=== PATIENT | female | born 1975 | race Caucasian/White ===

== ENCOUNTER 2018-01-22 17:39 | Emergency (ER) | payer MEDICAID ==
[~2018-01-22] VITALS: Ht 152.4 cm; Wt 60.8 kg
[~2018-01-22 17:39] MED LIST: METR250T2 PO
[2018-01-22 17:42] VITALS: BP 99/80
[2018-01-22 18:11] VITALS: BP 99/80
== END 2018-01-22 18:11 | disposition home or self-care (01) ==
LOC: MED 17:39
DX: L03.317 Cellulitis of buttock (principal); Z88.5 Allergy status to narcotic agent; Z79.899 Other long term (current) drug therapy
CPT/HCPCS: 99283

== ENCOUNTER 2018-01-26 10:17 | Emergency (ER) | payer MEDICAID ==
[~2018-01-26] VITALS: Ht 152.4 cm; Wt 59.0 kg
--- NOTE | 2018-01-26 10:24 | NUR ---
PT AMBULATES TO BED 7
[2018-01-26 10:28] VITALS: BP 126/82
--- NOTE | 2018-01-26 10:36 | NUR ---
RECTAL PAIN "BUMPS" X 4 DAYS WITH MILD PRURITIS. DENIES ANY BLOOD IN STOOL. DENIES FEVERS/CHILLS. . DENIES N/V/D; SKIN IS PINK/WARM/DRY; AAOX4 WITH EVEN AND STEADY GAIT; LUNGS CLEAR BL; HR EVEN AND REGULAR; PT DENIES ANY FEVER, CP, SOB, OR COUGH AT THIS TIME; PATIENT STATES PAIN OF 4/10 AT THIS TIME; VSS; PATIENT POSITIONED FOR COMFORT; HOB ELEVATED; BEDRAILS UP X2; BED DOWN. ER MD MADE AWARE OF PT STATUS.
[2018-01-26 10:53] VITALS: BP 126/82
--- NOTE | 2018-01-26 10:55 | NUR ---
Patient discharged with v/s stable. Written and verbal after care instructions given and explained. Patient alert, oriented and verbalized understanding of instructions. Ambulatory with steady gait. All questions addressed prior to discharge. ID band removed. Patient advised to follow up with PMD. Rx of ACYCLOVIR AND TRAMADOL given. Patient educated on indication of medication including possible reaction and side effects. Opportunity to ask questions provided and answered.
== END 2018-01-26 10:55 | disposition home or self-care (01) ==
LOC: MED 10:17
DX: B02.9 Zoster without complications (principal); R03.0 Elevated blood-pressure reading, without diagnosis of hypertension; Z79.899 Other long term (current) drug therapy; Z88.5 Allergy status to narcotic agent
CPT/HCPCS: 99283

== ENCOUNTER 2018-10-27 01:38 | Emergency (ER) | payer MEDICAID ==
[~2018-10-27] VITALS: Ht 152.4 cm; Wt 61.2 kg
[2018-10-27 01:40] VITALS: BP 105/65
--- NOTE | 2018-10-27 01:47 | NUR ---
PT TAKEN TO BED 2
--- NOTE | 2018-10-27 01:50 | NUR ---
PT BIB C/O ABD PAIN X3 DAYS. PT STATES SHE IS HAVING SHARP UPPER ABD PAIN /10 X3 DAYS. DENIES N/V/D; SKIN IS PINK/WARM/DRY; AAOX4 WITH EVEN AND STEADY GAIT; LUNGS CLEAR BL; HR EVEN AND REGULAR; PT DENIES ANY FEVER, CP, SOB, OR COUGH AT THIS TIME; VSS; PATIENT POSITIONED FOR COMFORT; HOB ELEVATED; BEDRAILS UP X2; BED DOWN. ER MD MADE AWARE OF PT STATUS. LMP:09/05/18 PMH: DENIES RX: DENIES
[2018-10-27 03:15] LABS: BASOPHILS # (AUTO) 0.1 K/uL (0.00-0.22); BASOPHILS % (AUTO) 0.9 % (0.0-2.0); EOSINOPHILS # (AUTO) 0.2 K/uL (0-0.4); EOSINOPHILS % (AUTO) 1.7 % (0.0-4.0); HEMATOCRIT 35.1 % (36-48); HEMOGLOBIN 11.4 g/dL (12.0-16.0); LYMPHOCYTES # (AUTO) 2.3 K/uL (2.5-16.5); LYMPHOCYTES % (AUTO) 20.9 % (20.5-51.1); MEAN CORPUSCULAR HEMOGLOBIN 29 pg (27-31); MEAN CORPUSCULAR HGB CONC 32 g/dL (33-37); MEAN CORPUSCULAR VOLUME 89.7 fL (80-94); NEUTROPHILS # (AUTO) 7.5 K/uL (1.8-7.7); NEUTROPHILS % (AUTO) 67.5 % (42.2-75.2); PLATELET COUNT (AUTO) 235 K/uL (140-450); RED BLOOD CELL COUNT(AUTO) 3.91 MIL/uL (4.20-5.40); RED CELL DISTRIBUTION WIDTH 13.9 % (11.6-13.7); WHITE BLOOD COUNT (AUTO) 11.1 K/uL (4.8-10.8)
[2018-10-27 03:30] LABS: ANION GAP 10.9 (8-16); CARBON DIOXIDE 23.1 mmol/L (21-32); CREATININE 0.7 mg/dL (0.6-1.3)
[2018-10-27 03:35] LABS: ALBUMIN 3.5 g/dL (3.4-5.0); TOTAL BILIRUBIN 0.2 mg/dL (0.0-1.0)
[2018-10-27] MEDS ORDERED: DICYCLOMINE 20 MG/2 ML VIAL IM ONE (04:15)
[2018-10-27] MEDS ORDERED: ACETAMINOPHEN EXTRA STRENGTH 500 MG TAB PO ONE (04:15)
[2018-10-27 04:19] LABS: APPEARANCE,URINE HAZY (CLEAR); BILIRUBIN,URINE NEGATIVE (NEGATIVE); BLOOD, URINE NEGATIVE (NEGATIVE); COLOR,URINE YELLOW (YELLOW); LEUKOCYTE ESTERASE ,URINE 2+ (NEGATIVE); NITRITE, URINE NEGATIVE (NEGATIVE); UGLUCOSE NEGATIVE (NEGATIVE)
[2018-10-27 04:36] LABS: RBC,URINE 0-5 (RARE) /HPF (0-5); WBC,URINE 60-80 /HPF (0-5)
[2018-10-27] MEDS ORDERED: LIDOCAINE VISCOUS 2% 20 ML UDC PO ONE (05:40)
[2018-10-27 05:50] VITALS: BP 110/68
--- NOTE | 2018-10-27 05:50 | NUR ---
Patient discharged with v/s stable. Written and verbal after care instructions given and explained. Patient alert, oriented and verbalized understanding of instructions. Ambulatory with steady gait. All questions addressed prior to discharge. ID band removed. Patient advised to follow up with PMD. Rx of Macrobid, and Acetaminophen given. Patient educated on indication of medication including possible reaction and side effects. Opportunity to ask questions provided and answered.
== END 2018-10-27 05:50 | disposition home or self-care (01) ==
LOC: MED 01:38
DX: O20.0 Threatened abortion (principal); Z3A.01 Less than 8 weeks gestation of pregnancy; Z79.899 Other long term (current) drug therapy
CPT/HCPCS: 36415; 76817; 80053; 81001; 81025; 83690; 84702; 85025; 86900; 86901; 87086; 96372; 99284; J0500; Q0092

== ENCOUNTER 2019-10-21 17:39 | Emergency (ER) | payer MEDICAID ==
[~2019-10-21] VITALS: Ht 154.9 cm; Wt 63.5 kg
[2019-10-21 17:44] VITALS: BP 133/82
--- NOTE | 2019-10-21 18:04 | NUR ---
44 Y/O F C/C RIGHT SIDED PAIN 9 X 1 WEEK. PT NOT TAKEN MEDICATION AT HOME FOR PAIN. PUPILS PERRLA. NEURO WDL. PT NKA. NO HX. NO RX. NO N/V/D. SIDE RAIL X1. FAMILY AT BEDSIDE.
[2019-10-21] MEDS ORDERED: KETOROLAC 30 MG/ML VIAL IM ONE (18:05)
[2019-10-21 18:23] VITALS: BP 133/82
--- NOTE | 2019-10-21 18:23 | NUR ---
Patient discharged with v/s stable. Written and verbal after care instructions given and explained. Patient alert, oriented and verbalized understanding of instructions. Ambulatory with steady gait. All questions addressed prior to discharge. ID band removed. Patient advised to follow up with PMD. Rx of IBUPROFEN,ZOFRAN,NORCO,VALIUM given. Patient educated on indication of medication including possible reaction and side effects. Opportunity to ask questions provided and answered.
== END 2019-10-21 18:23 | disposition home or self-care (01) ==
LOC: MED 17:39
DX: S16.1XXA Strain of muscle, fascia and tendon at neck level, initial encounter (principal); R51 Headache; Z90.49 Acquired absence of other specified parts of digestive tract; Z79.899 Other long term (current) drug therapy; X58.XXXA Exposure to other specified factors, initial encounter; Y93.89 Activity, other specified; Y92.89 Other specified places as the place of occurrence of the external cause; Y99.8 Other external cause status
CPT/HCPCS: 96372; 99283; J1885